=== PATIENT | female | born 1970 | race Caucasian/White ===

== ENCOUNTER → 2018-09-29 | Outpatient (REF) ==
--- NOTE | 2018-09-30 02:50 | REP ---
Clinical: Pain. Technique: Frontal view of the pelvis with neutral and frog lateral views of the right and left hip. Findings: Evidence of prior right hip replacement. The pelvis is intact. The right hip joint appears relatively normal given the obvious replacement. The left hip demonstrates a minimal sclerosis to the acetabular roof with subtle joint space narrowing and marginal spurring. 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 Normal appearance to the right hip replacement. Electronically Signed by Lalit Salter MD 09/30/2018 02:42 A
== END ==
LOC: M SMT 13:25
PROVIDERS: ATTEND Internal Medicine
DX: Z02.89 Encounter for other administrative examinations (principal)